=== PATIENT | female | born 1975 | race Hispanic/Latino ===

== ENCOUNTER 2017-11-19 12:37 | Inpatient (IN) | payer BC, MEDICAID ==
[2017-11-19 13:12] VITALS: BMI 32.5
[2017-11-19] MEDS ORDERED: Diphenoxylate HCl/Atropine Tablet PO PRN ×2 (14:11)
[2017-11-19] MEDS ORDERED: Ibuprofen 800 MG TAB PO PRN (14:11)
[2017-11-19] MEDS ORDERED: Promethazine HCl 25 MG/ML VIAL IM PRN (14:11)
[2017-11-19] MEDS ORDERED: NS / Oxytocin 40 units/1000ml 1,000 ML IV PRN (14:11)
[2017-11-19] MEDS ORDERED: Lidocaine 1% (PF) 30 ML VIAL SC PRN (14:11)
[2017-11-19] MEDS ORDERED: Methylergonovine 0.2 MG/ML VIAL IM PRN (14:11)
[2017-11-19] MEDS ORDERED: HYDROcodone/Acetaminophen 5/325 mg Tablet PO PRN ×4 (14:11→21:50)
[2017-11-19] MEDS ORDERED: Carboprost 250 MCG/ML AMP IM PRN (14:11)
[2017-11-19] MEDS ORDERED: Ondansetron HCl/PF 4 MG/2 ML Vial IVP PRN ×2 (14:11→21:50)
[2017-11-19] MEDS ORDERED: Misoprostol 200 MCG TAB PR PRN (14:11)
[2017-11-19] MEDS ORDERED: Acetaminophen 500 MG TAB PO PRN (14:11)
[2017-11-19] MEDS ORDERED: NS w/ Oxytocin 10 units 500 ML IV SCH (14:15)
[2017-11-19] MEDS ORDERED: Lactated Ringer's 1,000 ML IV SCH (14:15)
--- NOTE | 2017-11-19 14:19 | PDOC.LDHP ---
Labor and Delivery H&P Chief complaint: loss of fluid HPI: 41 y/o at 37w5d here with complaint of gush of fluid this morning and spotting. Ctx q 10 mins since then. Denies heavy VB or decreased FM. ROS neg for HEENT, cv, pulm, gi, gu, neuro, psych, musculoskeletal or constitutional symptoms otehr than mentioned above. OB History Details: 1. 20 week AB for incompetent cx 2. 38 week with cerclage 3. 32 week twins with cerclage 4. 38 week with cerclage, GDM Current complications: other (AMA, cerclage) Past Medical History: None Current medications: pre- vitamins Previous surgical history: other (cerclage x 3) Allergies/Adverse Reactions: Allergies Allergy/AdvReac Type Severity Reaction Status Date / Time No Known Allergies Allergy Verified 11/19/17 13:10 Social history: none - Physical Exam Vital signs reviewed and normal: yes General: NAD, resting Lungs: nonlabored breathing Abdomen: gravid Extremeties: no edema FHT: category 1 (140s, mod variability, + accels, no decels) [place] contractions every: q10 mins - Vaginal Exam cm dilated: 4 Effacement: 75% Station: -1 - OB Labs Blood type: O RH: positive Antibody Screen: negative HIV: negative RPR: negative HEPSAg: negative 1 hour GCT: negative GBS: negative - Assessment L&D Assessment: medically indicated induction (Oligo on bedside ultrasound at term) - Plan Plan: admit to L&D, labor augmentation if indicated, informed consent obtained, anesthesia consult for pain management (if desired)
[2017-11-19 15:10] LABS: Hemoglobin 11.4 g/dL (12.0-16.0); Mean Corpuscular Hemoglobin 31.5 pg (27.0-31.0); Mean Corpuscular Volume 87.4 fL (78.0-98.0); Mean Platelet Volume 8.6 fL (7.4-10.4); Platelet Count 239 thou/uL (130-400); RBC Distribution Width 12.9 % (11.5-14.5); Red Blood Cell (RBC) Count 3.61 mill/uL (4.20-5.40); White Blood Cell (WBC) Count 8.5 thou/uL (4.8-10.8)
[2017-11-19] MEDS: Butorphanol Tartrate 1 MG/ML VIAL SLOW IVP PRN ×2 (15:21→17:45)
[2017-11-19 15:44] LABS: Syphilis Antibody Nonreactive (Nonreactive); Syphilis Antibody Index 0.04 S/CO (<1.00 Non-Reactive)
[2017-11-19 15:45] LABS: HBSAg Index 0.23 S/CO (0-0.99); Hep B Surf Ag Non-Reactive S/CO (NonReactive)
--- NOTE | 2017-11-19 19:08 | PDOC.OPDEL ---
OB Operative/Delivery Note Delivery Dr/Surgeon: Ba Assist: n/a Pre-Delivery Diagnosis: medically indicated induction (oligohydramnios) Procedure/Post Delivery Dx: spontaneous vaginal delivery Weeks gestation: 37 Anesthesia: none - Findings A Sex: female - 1 min: 9 - 5 min: 9 - Additional Findings/Plan Placenta delivered: spontaneous Repaired Obstetrical Laceration: none Estimated blood loss: normal qbl pending Post delivery plan: routine recovery
[2017-11-19] MEDS ORDERED: Lanolin Ointment 7 GM TUBE TOP PRN (21:50)
[2017-11-19] MEDS ORDERED: Bisacodyl 10 MG SUPP PR PRN (21:50)
[2017-11-19] MEDS ORDERED: NS / Oxytocin 40 units/1000ml 1,000 ML IV SCH (21:50)
[2017-11-19] MEDS ORDERED: Benzocaine/Menthol 20-0.5% 60 ML CAN TOP PRN (21:50)
[2017-11-19] MEDS ORDERED: Adacel (T-DAP) 0.5 ML VIAL IM ONE (21:50)
[2017-11-19] MEDS ORDERED: Milk Of Magnesia 30 ML UDCUP PO PRN (21:50)
[2017-11-19] MEDS ORDERED: Preparation H Ointment 28 GM TUBE PR PRN (21:50)
[2017-11-19] MEDS ORDERED: diphenhydrAMINE 25 MG CAP PO PRN (21:50)
[2017-11-19] MEDS: Ibuprofen 800 MG TAB PO SCH (22:42)
[2017-11-20] MEDS: Ibuprofen 800 MG TAB PO SCH ×3 (05:39→21:14)
[2017-11-20] MEDS: Ferrous Sulfate 325 MG TAB PO SCH ×2 (08:01→18:00)
[2017-11-20] MEDS: Docusate Calcium (SURFAK) 240 MG CAP PO SCH ×2 (09:28→21:14)
[2017-11-20] MEDS: Prenatal Vitamin 1 TAB PO SCH (09:28)
--- NOTE | 2017-11-20 10:17 | PDOC.PP ---
Post Progress Note Post Day #: 1 PO intake tolerated: yes Flatus: yes Ambulation: yes Vital Signs (12 hours) Temp Pulse Resp BP 11/20/17 08:00 98.3 F 63 20 11/20/17 07:48 98.3 F 63 20 94/58 L 11/20/17 05:30 97.5 F L 60 18 91/54 L 11/20/17 00:00 98.8 F 67 20 100/54 L 11/19/17 22:40 97.9 F 69 18 100/57 L Weight Weight 167 lb - Physical Examination General: NAD Cardiovascular: RRR Respiratory: non-labored breathing Abdominal: no distention, appropriately TTP Fundus firm & at: umb Skin: no rash Neurological: no gross focal deficits Psychiatric: normal affect Result Diagrams: 11/19/17 14:47 Additional Labs: Post Labs Blood Type O POSITIVE 11/19/17 14:47 Hep Bs Antigen Non-Reactive S/CO (NonReactive) 11/19/17 14:47 (1) Term delivered Code(s): O80 - ENCOUNTER FOR FULL-TERM UNCOMPLICATED DELIVERY Status: Acute (2) Oligohydramnios delivered Code(s): O41.00X0 - OLIGOHYDRAMNIOS, UNSP TRIMESTER, NOT APPLICABLE OR UNSP Status: Acute - Assessment/Plan PPD1 s/p TSVD VSSAF Doing well appropriate lochia Rh pos Rimm Cont PP care, home tomorrow.
[2017-11-21] MEDS: Ibuprofen 800 MG TAB PO SCH (04:51)
[2017-11-21 07:31] VITALS: BP 104/62; TEMP 98.2
[2017-11-21] MEDS: Prenatal Vitamin 1 TAB PO SCH (08:51)
[2017-11-21] MEDS: Docusate Calcium (SURFAK) 240 MG CAP PO SCH (08:51)
[2017-11-21] MEDS: Ferrous Sulfate 325 MG TAB PO SCH (08:52)
--- NOTE | 2017-11-21 10:54 | PDOC.PP ---
Post Progress Note Vital Signs (12 hours) Temp Pulse Resp BP 11/21/17 07:31 98.2 F 63 20 104/62 11/21/17 07:30 98.2 F 63 20 Weight Weight 167 lb Result Diagrams: 11/19/17 14:47 Additional Labs: Post Labs Blood Type O POSITIVE 11/19/17 14:47 Hep Bs Antigen Non-Reactive S/CO (NonReactive) 11/19/17 14:47 (1) Term delivered Code(s): O80 - ENCOUNTER FOR FULL-TERM UNCOMPLICATED DELIVERY Status: Acute (2) Oligohydramnios delivered Code(s): O41.00X0 - OLIGOHYDRAMNIOS, UNSP TRIMESTER, NOT APPLICABLE OR UNSP Status: Acute
== END 2017-11-21 12:00 | disposition home or self-care (01) | DRG 775 ==
LOC: L&D/OP 12:37 → L&D 14:29 → 3SW 22:01
PROVIDERS: ADMIT Student in an Organized Health Care Education/Training Program; ATTEND Student in an Organized Health Care Education/Training Program
PROC: 10E0XZZ Delivery of Products of Conception, External Approach (ICD-10-PCS; principal; 2017-11-19)
DX: O41.03X0 Oligohydramnios, third trimester, not applicable or unspecified (principal); Z37.0 Single live birth; Z3A.37 37 weeks gestation of pregnancy
CPT/HCPCS: 76815; 85027; 86780; 86850; 86900; 86901; 87340; 99285; J0595; J2001

== ENCOUNTER 2019-04-30 15:34 | Outpatient (CLI) | payer BC ==
--- NOTE | 2019-05-07 13:25 | MMO ---
Bilateral MAMMO Bilat Screen [facility]. CLINICAL HISTORY: Patient is 43 years old and is seen for screening. The patient has no family history of breast cancer. The patient has no personal history of cancer. The patient has a history of right Excisional Biopsy in 2019 - benign - done at [facility]: The views performed were: bilateral craniocaudal with tomosynthesis and bilateral mediolateral oblique with tomosynthesis. This study has been interpreted with the assistance of computer-aided detection. MAMMOGRAM FINDINGS: The breasts are heterogeneously dense, which could obscure a lesion on mammography. Finding 1: There is an oval mass with obscured margins seen in the CC view only seen in the posterior inner region of the left breast. Finding 2: There are benign appearing calcifications seen in both breasts. IMPRESSION: FINDING 1: MASS IN THE LEFT BREAST REQUIRES ADDITIONAL EVALUATION. RECOMMEND DIAGNOSTIC MAMMOGRAM. ULTRASOUND MAY ALSO PROVE USEFUL AT RECALL. FINDING 2: CALCIFICATIONS IN BOTH BREASTS ARE BENIGN. THE RESULTS OF THIS EXAM WERE SENT TO THE PATIENT. ACR BI-RADS Category 0 - Incomplete: Need additional imaging evaluation. [facility] will notify the patient of the need for additional imaging services. MAMMOGRAPHY NOTE: 1. A negative mammogram report should not delay a biopsy if a dominant of clinically suspicious mass is present. 2. Approximately 10% to 15% of breast cancers are not detected by mammography. 3. Adenosis and dense breasts may obscure an underlying neoplasm. Reported by: ESDRAS ADAMS MD Electonically Signed: [id number]
== END 2019-04-30 15:35 | disposition home or self-care (01) ==
LOC: BICMAMMO 15:34
PROVIDERS: ATTEND Nurse Practitioner Women's Health
DX: Z12.31 Encounter for screening mammogram for malignant neoplasm of breast (principal); Z91.89 Other specified personal risk factors, not elsewhere classified; N63.20 Unspecified lump in the left breast, unspecified quadrant
CPT/HCPCS: 77063; 77067

== ENCOUNTER 2019-05-21 14:39 | Outpatient (CLI) | payer BC ==
--- NOTE | 2019-05-21 15:32 | MMO ---
Left Breast MAMMO Unilat Diag [facility]. CLINICAL HISTORY: Patient is 43 years old and is seen for diagnostic exam. The patient has no family history of breast cancer. The patient has no personal history of cancer. The patient has a history of right Excisional Biopsy in 2019 - benign - done at [facility]: The views performed were: left craniocaudal spot compression with tomosynthesis and left mediolateral with tomosynthesis. FILMS COMPARED: The present examination has been compared to prior imaging studies performed at [facility] on 04/30/2019 and 05/21/2019. This study has been interpreted with the assistance of computer-aided detection. MAMMOGRAM FINDINGS: The breast is heterogeneously dense, which could obscure a lesion on mammography. There is an asymmetry seen in the inner region of the left breast. Ultrasound shows no abnormality. There are no suspicious masses, suspicious calcifications, or new areas of architectural distortion. IMPRESSION: THERE IS NO MAMMOGRAPHIC EVIDENCE OF MALIGNANCY. A ROUTINE FOLLOW-UP MAMMOGRAM IN 1 YEAR IS RECOMMENDED. THE RESULTS OF THIS EXAM WERE SENT TO THE PATIENT. ACR BI-RADS Category 2 - Benign finding MAMMOGRAPHY NOTE: 1. A negative mammogram report should not delay a biopsy if a dominant of clinically suspicious mass is present. 2. Approximately 10% to 15% of breast cancers are not detected by mammography. 3. Adenosis and dense breasts may obscure an underlying neoplasm. Reported by: JHONATAN ABBOTT MD Electonically Signed: [id number]
--- NOTE | 2019-05-21 15:41 | ULT ---
LEFT BREAST ULTRASOUND: HISTORY: An asymmetric area is seen on the CC projection only in the most medial aspect of the left breast. A dditional compression views and tomographic images were very difficult due to the position, but the a nubia was captured on a CC view and appeared to be interspersed with fat. FINDINGS: Ultrasound examination failed to show any cystic or solid lesion. I suspect that this density just r epresents breast tissue in this area. IMPRESSION: BIRADS category 2 - benign findings. POS: OFF
== END 2019-05-21 14:40 | disposition home or self-care (01) ==
LOC: BICMAMMO 14:39
PROVIDERS: ATTEND Nurse Practitioner Women's Health
DX: N63.20 Unspecified lump in the left breast, unspecified quadrant (principal)
CPT/HCPCS: G0279